=== PATIENT | female | born 1995 | race Caucasian/White ===

== ENCOUNTER 2018-11-22 01:50 | Emergency (ER) | payer OTHER ==
--- NOTE | 2018-11-22 02:47 | EDPHY ---
H & P Stated Complaint: etoh Time Seen by Provider: 11/22/18 01:53 HPI/ROS: CHIEF COMPLAINT: Alcohol intoxication HISTORY OF PRESENT ILLNESS: The patient is brought in by ambulance for alcohol intoxication. She was with her sister susanna and had 6 drinks of alcohol in quick succession. She felt dizzy afterwards and began vomiting. She fell down though hit her head against a door on her way down. She did not lose consciousness. She began to vomit several times and the vomit looks slightly red. The patient had been drinking red Gatorade. Patient denies coingestion , patient denies suicidal or homicidal behavior. REVIEW OF SYSTEMS: 10 systems were reviewed and negative with the exception of the elements mentioned in the history of present illness. PAST MEDICAL HISTORY: None PAST SURGICAL HISTORY: None SOCIAL HISTORY: Student, recent grad, drinks alcohol occasionally PHYSICAL EXAM: General Appearance: Alert, well hydrated, appropriate, and non-toxic appearing. Head: Atraumatic without scalp tenderness or obvious injury Eyes: Pupils equal, round, reactive to light, no injection. Ears: Clear bilaterally, no perforation, normal landmarks Nose: Atraumatic, no rhinorrhea, clear. Throat: mucus membranes moist. Neck: Supple, non-tender, no lymphadenopathy. Respiratory: No retractions, no distress, no wheezes, and no accessory muscle use. Lungs are clear to auscultation bilaterally. Cardiovascular: Regular rate and rhythm, no murmurs, rubs, or gallops. Gastrointestinal: Abdomen is soft, non-tender, non-distended Musculoskeletal: Normal active ROM of all extremities, atraumatic. Neurological: Alert, appropriate, and interactive. Moves all extremities equally. Skin: No rashes, good turgor, no nodules on palpation. MEDICAL DECISION MAKING: I serially examined this patient since the patient's arrival here in the emergency department. The patient continues to become more and more sober with each examination. I serially questioned the patient and the patient's story given initially has not changed. The patient still denies any trauma, any head injury, and any illicit drug use. She has had no ongoing vomiting. At this point, the patient is walking the department freely and is clinically sober. We're discharging the patient home with her family in stable condition. Source: Patient, Family, EMS Exam Limitations: Intoxication - Personal History LMP (Females 10-55): 15-21 Days Ago Current Tetanus Diphtheria and Acellular Pertussis (TDAP): Yes - Medical/Surgical History Other PMH: denies - Social History Smoking Status: Never smoked Constitutional: Initial Vital Signs Temperature (C) 36.8 C 11/22/18 01:55 Heart Rate 95 11/22/18 01:55 Respiratory Rate 18 11/22/18 01:55 Blood Pressure 134/87 H 11/22/18 01:55 O2 Sat (%) 93 11/22/18 01:55 O2 Delivery Mode Room Air Allergies/Adverse Reactions: Penicillins Allergy (Verified 11/22/18 01:55) Home Medications: Medication Instructions Recorded Control 11/22/18 Departure - Departure Disposition: Home, Routine, Self-Care Clinical Impression: Alcoholic intoxication Qualifiers: Complication of substance-induced condition: with delirium Qualified Code(s): F10.921 - Alcohol use, unspecified with intoxication delirium Vomiting Qualifiers: Vomiting type: unspecified Vomiting Intractability: non-intractable Nausea presence: with nausea Qualified Code(s): R11.2 - Nausea with vomiting, unspecified Condition: Good Instructions: At-Risk Alcohol Use (ED) Additional Instructions: Please make sure to drink plenty of fluids. You should return to the emergency department if your worse in any way. Referrals: KRISTA LIANG MD [Other] - As per Instructions
[2018-11-22 04:18] VITALS: BP 106/58
== END 2018-11-22 05:01 | disposition home or self-care (01) ==
DX: F10.921 Alcohol use, unspecified with intoxication delirium (principal); R11.2 Nausea with vomiting, unspecified